=== PATIENT | male | born 1945 | race Caucasian/White ===

== ENCOUNTER → 2016-10-14 | Outpatient (CLI) | payer MEDICARE | LOC: COL.RAD 09:32 | DX: Z13.6 Encounter for screening for cardiovascular disorders (principal); Z87.891 Personal history of nicotine dependence ==

== ENCOUNTER → 2016-11-08 | Outpatient (CLI) | payer MEDICARE | LOC: COL.RAD 08:51 | DX: K86.89 Other specified diseases of pancreas (principal); N28.1 Cyst of kidney, acquired; K80.20 Calculus of gallbladder without cholecystitis without obstruction; K85.90 Acute pancreatitis without necrosis or infection, unspecified | CPT/HCPCS: Q9967 ==

== ENCOUNTER 2017-03-09 14:24 | Outpatient (RCR) | payer MEDICARE ==
[2005-04-11 18:44] VITALS: BP 131/59
[~2017-03-09] VITALS: Ht 185.4 cm; Wt 81.8 kg
[2017-03-09 14:52] VITALS: BP 138/69; PULSE 78; TEMP 97.3
[2017-03-23] MEDS ORDERED: COLACE 100100 MG/CAP PO (14:52)
[2017-03-23] MEDS ORDERED: FLOMAX 0.40.4 MG/CAP PO (14:52)
== END 2017-03-09 18:00 | disposition home or self-care (01) ==
LOC: EUO 14:24
DX: C25.0 Malignant neoplasm of head of pancreas (principal)

== ENCOUNTER 2017-03-15 18:10 | Emergency (ER) | payer MEDICARE ==
[2005-04-11 18:44] VITALS: BP 131/59
[~2017-03-15] VITALS: Ht 185.4 cm; Wt 81.8 kg
[2017-03-15 18:19] VITALS: TEMP 97.7
[2017-03-15 21:09] LABS: HEMATOCRIT 39.6 % (42.0-52.0); MEAN CELL VOLUME 96 fl (80.0-100.0); MEAN CORPUSCULAR HEMOGLOBIN 32 pg (27.0-31.0); MEAN CORPUSCULAR HGB CONC 33 g/dl (33.0-37.0); MEAN PLATELET VOLUME 9.2 fl (7.4-10.4); PLATELET COUNT 224 K/mm3 (130-400); RED BLOOD COUNT 4.13 M/mm3 (4.20-5.60)
[2017-03-15 21:13] LABS: ADD PATHOLOGY DIFF REVIEW NO
[2017-03-15 21:26] LABS: ADJUSTED CALCIUM 9.8 mg/dL (8.4-10.2); ALBUMIN 3.5 gm/dL (3.5-5.0); BILIRUBIN,TOTAL 0.6 mg/dL (0.0-1.0); C-REACTIVE PROTEIN 1.8 mg/dL (0.0-0.9); CALCIUM 9.4 mg/dL (8.4-10.2); CREATININE, serum 0.72 mg/dL (0.66-1.25); POTASSIUM 3.8 mmol/L (3.4-5.0); TOTAL PROTEIN 7.4 gm/dL (6.4-8.2)
[2017-03-15] MEDS ORDERED: [UNRECOGNIZED DRUG - OTHER] (21:29)
[2017-03-15] MEDS ORDERED: FLUOROURACIL50 MG/ML IV (21:30)
[2017-03-15] MEDS ORDERED: OXALIPLATIN IV (21:31)
[2017-03-15 21:32] LABS: BAND 2 % (0-10); EOSINOPHIL 2 % (0-4); LYMPHOCYTE 17 % (20.0-51.0); NEUTROPHILS 66 % (42.0-75.2); ROULEAUX 1+; TOTAL CELLS COUNTED 100
[2017-03-15 21:33] LABS: ANISOCYTOSIS 1+; POIKILOCYTOSIS 1+
[2017-03-16 00:50] VITALS: BP 121/77; PULSE 106
[2017-03-16 04:41] LABS: COLLECTION METHOD CLEAN CATCH
[2017-03-16 05:05] LABS: MUCOUS Present /lpf; PH 5 (5-8); SQUAMOUS EPITHELIAL None Seen /hpf; URINE APPEARANCE Turbid; URINE BACTERIA Rare /hpf; URINE BILIRUBIN Negative (NEGATIVE); URINE BLOOD Negative (NEGATIVE); URINE COLOR Amber; URINE GLUCOSE Negative (NEGATIVE); URINE KETONE Negative (NEGATIVE); URINE LEUKOCYTE ESTERASE Negative (NEGATIVE); URINE PROTEIN(semi-quant) Negative (NEGATIVE); URINE RBC 0-2 /hpf; URINE WBC 0-2 /hpf
[2017-03-23] MEDS ORDERED: FLOMAX 0.40.4 MG/CAP PO (14:52)
[2017-03-23] MEDS ORDERED: COLACE 100100 MG/CAP PO (14:52)
== END 2017-03-16 00:50 | disposition home or self-care (01) ==
LOC: COL.ER 18:10
PROVIDERS: Family Medicine
DX: K59.00 Constipation, unspecified (principal); R33.9 Retention of urine, unspecified; C25.9 Malignant neoplasm of pancreas, unspecified
CPT/HCPCS: J2405; J7030; J7050; Q9967

== ENCOUNTER 2017-04-20 14:30 | Outpatient (RCR) | payer MEDICARE ==
[2005-04-11 18:44] VITALS: BP 131/59
[2017-03-23 14:53] VITALS: BP 124/70; PULSE 91; TEMP 97.8
[2017-04-06 14:39] VITALS: BP 141/73; PULSE 86; TEMP 97.8
[~2017-04-20] VITALS: Ht 185.4 cm; Wt 77.0 kg
[2017-04-20 14:25] VITALS: BP 102/57; PULSE 64; TEMP 97.6
[~2017-04-20 14:30] MED LIST: COLACE 100100 MG/CAP PO; FLOMAX 0.40.4 MG/CAP PO; FLUOROURACIL50 MG/ML IV; OXALIPLATIN IV; [UNRECOGNIZED DRUG - OTHER]
== END 2017-06-21 ==
LOC: EUO
DX: C25.0 Malignant neoplasm of head of pancreas (principal)
CPT/HCPCS: J1644

== ENCOUNTER → 2017-05-22 | Outpatient (CLI) | payer MEDICARE | LOC: COL.PUL 14:51 | DX: R91.1 Solitary pulmonary nodule (principal) ==

== ENCOUNTER 2017-08-08 11:49 | Emergency (ER) | payer MEDICARE ==
[2005-04-11 18:44] VITALS: BP 131/59
[~2017-08-08] VITALS: Ht 185.4 cm; Wt 73.6 kg
[2017-08-08 12:20] LABS: MEAN CELL VOLUME 100 fl (80.0-100.0); MEAN CORPUSCULAR HGB CONC 31 g/dl (33.0-37.0); PLATELET COUNT 307 K/mm3 (130-400); RED BLOOD COUNT 2.83 M/mm3 (4.20-5.60); REDCELL DISTRIBUTION WIDTH-CV 13.7 % (11.5-14.5)
[2017-08-08 12:22] LABS: HEMATOCRIT 28.3 % (42.0-52.0); HEMOGLOBIN 8.9 g/dl (13.5-18.0); MEAN CORPUSCULAR HEMOGLOBIN 31 pg (27.0-31.0)
[2017-08-08 12:26] LABS: ALBUMIN 2.3 gm/dL (3.5-5.0); BILIRUBIN,TOTAL 0.3 mg/dL (0.0-1.0); CALCIUM 7.9 mg/dL (8.4-10.2); CREATININE, serum 0.78 mg/dL (0.66-1.25); POTASSIUM 4.5 mmol/L (3.4-5.0); TOTAL PROTEIN 5.4 gm/dL (6.4-8.2)
[2017-08-08 12:36] LABS: BAND 5 % (0-10); LYMPHOCYTE 17 % (20.0-51.0); METAMYELOCYTE 1 % (0-0); NEUTROPHILS 75 % (42.0-75.2); PLATELET ESTIMATE NORMAL (NORMAL)
[2017-08-08] MEDS ORDERED: FLOMAX 0.40.4 MG/CAP PO (12:43)
[2017-08-08] MEDS ORDERED: ROXICODONE 55 MG/TAB PO (12:43)
[2017-08-08] MEDS ORDERED: LOPRESSOR 225 MG/TAB PO (12:44)
[2017-08-08] MEDS ORDERED: [UNRECOGNIZED DRUG - OTHER] (12:44)
[2017-08-08 14:35] LABS: COLLECTION METHOD CLEAN CATCH
[2017-08-08 14:45] LABS: MUCOUS Present /lpf; PH 5 (5-8); SQUAMOUS EPITHELIAL 0-2 /hpf; URINE APPEARANCE Clear; URINE BACTERIA None Seen /hpf; URINE BILIRUBIN Negative (NEGATIVE); URINE BLOOD Negative (NEGATIVE); URINE COLOR Yellow; URINE GLUCOSE Negative (NEGATIVE); URINE KETONE Negative (NEGATIVE); URINE LEUKOCYTE ESTERASE Negative (NEGATIVE); URINE NITRATE Negative (NEGATIVE); URINE PROTEIN(semi-quant) Negative (NEGATIVE); URINE RBC 0-2 /hpf; URINE UROBILINOGEN Negative (NEGATIVE)
[2017-08-08 14:57] VITALS: BP 93/64; PULSE 83; TEMP 97.4
[2017-08-08 15:05] VITALS: BP 87/58; PULSE 80; TEMP 97.7
[2017-08-08 15:11] VITALS: BP 85/59; PULSE 81; TEMP 97.6
[2017-08-08 15:22] VITALS: BP 85/57; PULSE 90; TEMP 97.2
[2017-08-08 16:10] VITALS: BP 98/59; PULSE 83; TEMP 97.7
== END 2017-08-08 15:50 | disposition short-term general hospital (02) ==
LOC: COL.ER 11:49
PROVIDERS: Emergency Medicine
DX: I95.9 Hypotension, unspecified (principal); R93.3 Abnormal findings on diagnostic imaging of other parts of digestive tract; Z85.07 Personal history of malignant neoplasm of pancreas; Z90.49 Acquired absence of other specified parts of digestive tract
CPT/HCPCS: C9113; J7030; P9016; Q9967

== ENCOUNTER 2017-09-11 05:43 | Emergency (ER) | payer MEDICARE ==
[2005-04-11 18:44] VITALS: BP 131/59
[~2017-09-11] VITALS: Ht 185.4 cm; Wt 71.4 kg
[~2017-09-11 05:43] MED LIST changes: +LOPRESSOR 225 MG/TAB PO; +ROXICODONE 55 MG/TAB PO; +[UNRECOGNIZED DRUG - OTHER]
[2017-09-11] MEDS ORDERED: PLAVIX 75MG TAB75 MG PO (05:55)
[2017-09-11] MEDS ORDERED: ASPIRIN 32325 MG/TAB PO (05:55)
[2017-09-11 06:10] LABS: BASO # 0.1 (0.0-0.2); BASO % 0.4 % (0.0-2.0); EOS # 0.2 (0.0-0.7); EOS % 1.5 % (0-4.0); GRAN % 74.1 % (42.2-75.2); LYMPH # 2.4 (1.2-3.4); LYMPH % 14.8 % (20.0-51.0); MEAN CELL VOLUME 95 fl (80.0-100.0); MEAN CORPUSCULAR HGB CONC 32 g/dl (33.0-37.0); MONO # 1.4 (0.1-0.6); MONO % 8.5 % (1.7-9.3); PLATELET COUNT 398 K/mm3 (130-400); RED BLOOD COUNT 3.02 M/mm3 (4.20-5.60)
[2017-09-11 06:14] LABS: HEMATOCRIT 28.8 % (42.0-52.0); HEMOGLOBIN 9.2 g/dl (13.5-18.0); MEAN CORPUSCULAR HEMOGLOBIN 30 pg (27.0-31.0)
[2017-09-11 06:16] LABS: INR 1.2 (0.8-3.0); PROTHROMBIN TIME 13.9 SECONDS (9.7-12.8)
[2017-09-11 06:18] LABS: PARTIAL THROMBOPLASTIN TIME 27.8 SECONDS (26.0-37.0)
[2017-09-11 06:26] LABS: ALBUMIN 3.1 gm/dL (3.5-5.0); BILIRUBIN,TOTAL 0.5 mg/dL (0.0-1.0); CALCIUM 8.7 mg/dL (8.4-10.2); CREATININE, serum 0.6 mg/dL (0.66-1.25); POTASSIUM 3.9 mmol/L (3.4-5.0); TOTAL PROTEIN 7.5 gm/dL (6.4-8.2)
[2017-09-11 07:46] LABS: COLLECTION METHOD CLEAN CATCH
[2017-09-11 07:58] LABS: MUCOUS Present /lpf; PH 5 (5-8); SQUAMOUS EPITHELIAL 0-2 /hpf; URINE APPEARANCE Clear; URINE BACTERIA None Seen /hpf; URINE BILIRUBIN Negative (NEGATIVE); URINE BLOOD Negative (NEGATIVE); URINE COLOR Yellow; URINE GLUCOSE Negative (NEGATIVE); URINE KETONE Negative (NEGATIVE); URINE LEUKOCYTE ESTERASE Negative (NEGATIVE); URINE NITRATE Negative (NEGATIVE); URINE PROTEIN(semi-quant) Negative (NEGATIVE); URINE RBC 0-2 /hpf; URINE UROBILINOGEN Negative (NEGATIVE)
[2017-09-11 08:20] VITALS: BP 101/63; PULSE 92; TEMP 97.9
[2017-09-11 08:34] VITALS: BP 105/67; PULSE 94; TEMP 98.1
== END 2017-09-11 08:51 | disposition short-term general hospital (02) ==
LOC: COL.ER 05:43
PROVIDERS: Emergency Medicine
DX: K92.2 Gastrointestinal hemorrhage, unspecified (principal); I72.8 Aneurysm of other specified arteries; I48.91 Unspecified atrial fibrillation; N40.0 Benign prostatic hyperplasia without lower urinary tract symptoms; Z98.890 Other specified postprocedural states; Z85.07 Personal history of malignant neoplasm of pancreas; Z79.02 Long term (current) use of antithrombotics/antiplatelets; Z79.82 Long term (current) use of aspirin
CPT/HCPCS: C9113; J7030; P9016; Q9967

== ENCOUNTER 2018-11-29 12:49 | Inpatient (IN) | payer MEDICARE ==
[~2018-11-29] VITALS: Ht 182.9 cm; Wt 66.7 kg
[2018-11-29] VITALS (158 sets, daily range): BP systolic 92–97; BP diastolic 55–59; PULSE 69–70; TEMP 98.5–98.8; O2SAT 86–100
[~2018-11-29 12:49] MED LIST changes: +ASPIRIN 32325 MG/TAB PO; +PLAVIX 75MG TAB75 MG PO
[2018-11-29] MEDS ORDERED: COLESTID 1GM1 G PO (13:38)
[2018-11-29] MEDS ORDERED: XELODA500 MG (13:40)
[2018-11-29 14:15] LABS: BASO % 0.4 % (0.0-2.0); EOS # 0.1 (0.0-0.7); EOS % 1.4 % (0-4.0); GRAN # 5.7 (1.4-6.5); GRAN % 76.4 % (42.2-75.2); LYMPH # 0.9 (1.2-3.4); LYMPH % 11.5 % (20.0-51.0); MEAN CELL VOLUME 103 fl (80.0-100.0); MEAN CORPUSCULAR HGB CONC 34 g/dl (33.0-37.0); MEAN PLATELET VOLUME 9.6 fl (7.4-10.4); MONO # 0.7 (0.1-0.6); MONO % 9.6 % (1.7-9.3); PLATELET COUNT 230 K/mm3 (130-400); RED BLOOD COUNT 2.54 M/mm3 (4.20-5.60)
[2018-11-29 14:22] LABS: HEMATOCRIT 26.2 % (42.0-52.0); HEMOGLOBIN 8.9 g/dl (13.5-18.0); MEAN CORPUSCULAR HEMOGLOBIN 35 pg (27.0-31.0)
[2018-11-29 14:27] LABS: INR 1.6 (0.8-3.0); PROTHROMBIN TIME 19.3 SECONDS (9.7-12.8)
[2018-11-29 14:28] LABS: ALBUMIN 2.6 gm/dL (3.5-5.0); BILIRUBIN,TOTAL 0.7 mg/dL (0.0-1.0); CALCIUM 7.7 mg/dL (8.4-10.2); CREATININE, serum 0.52 (0.66-1.25); POTASSIUM 3.4 mmol/L (3.4-5.0); TOTAL PROTEIN 5.9 gm/dL (6.4-8.2)
[2018-11-29 16:11] LABS: C-REACTIVE PROTEIN 5.8 mg/dL (0.0-0.9)
[2018-11-29 16:25] LABS: LIPASE < 10 U/L (23-300)
--- NOTE | 2018-11-29 19:35 | NUR ---
Bedside report received from STEFANIA Souza
--- NOTE | 2018-11-29 20:00 | NUR ---
Patient is resting in bed watching TV. He is alert and oriented x4. Lungs are clear bilaterally with diminished bases. HR and rhythm are regular with occasional A-paced beats, normal S1 and S2 heard. Bowel sounds are hypoactive but audible in all quadrants. Patient has palpable pulses in all extremities. Assisted patient up to the restroom. He passes a large amount of gas, but no stool. Patient has no complaints of pain. Vitals are stable and WNL. No further needs at this time. Will continue to monitor. Call light within reach.
[2018-11-29 21:35] LABS: HEMATOCRIT 20.9 % (42.0-52.0); HEMOGLOBIN 7.1 g/dl (13.5-18.0)
[2018-11-30] VITALS (545 sets, daily range): BP systolic 85–112; BP diastolic 47–60; PULSE 60–66; TEMP 97.4–98.4; O2SAT 52–99
--- NOTE | 2018-11-30 | NUR ---
Assessment complete. Patient resting in bed, no complaints of pain. Assisted up to the restroom. He continues to pass gas with no stool, Patient does urinate a small amount. Assessment reveals no changes from previous exam. Vitals obtained and remain stable. No further needs at this time. Will continue to monitor. Call light within reach.
--- NOTE | 2018-11-30 04:00 | NUR ---
Patient awake at this time and assisted up to the bathroom. He produces a small stool. It is soft formed and tarry. Patient urinates. Assisted back to bed. Assessment complete. No changes from previous exam except that bowel sounds are more active in all quadrants. No complaints of pain. Vitals obtained and remain stable. No further needs. Will continue to monitor. Call light within reach.
[2018-11-30 06:00] LABS: BASO % 0.2 % (0.0-2.0); EOS # 0.2 (0.0-0.7); EOS % 2.4 % (0-4.0); GRAN # 7.2 (1.4-6.5); GRAN % 80.7 % (42.2-75.2); LYMPH # 0.9 (1.2-3.4); LYMPH % 9.7 % (20.0-51.0); MEAN CELL VOLUME 104 fl (80.0-100.0); MEAN CORPUSCULAR HGB CONC 34 g/dl (33.0-37.0); MEAN PLATELET VOLUME 9.7 fl (7.4-10.4); MONO # 0.6 (0.1-0.6); MONO % 6.4 % (1.7-9.3); PLATELET COUNT 203 K/mm3 (130-400); RED BLOOD COUNT 2.01 M/mm3 (4.20-5.60)
[2018-11-30 06:01] LABS: HEMATOCRIT 20.9 % (42.0-52.0); MEAN CORPUSCULAR HEMOGLOBIN 35 pg (27.0-31.0)
[2018-11-30 06:11] LABS: ALBUMIN 2.1 gm/dL (3.5-5.0); BILIRUBIN,TOTAL 0.6 mg/dL (0.0-1.0); CALCIUM 7.5 mg/dL (8.4-10.2); CREATININE, serum 0.51 (0.66-1.25); POTASSIUM 3.3 mmol/L (3.4-5.0); TOTAL PROTEIN 5.1 gm/dL (6.4-8.2)
[2018-11-30 06:12] LABS: INR 1.6 (0.8-3.0); PROTHROMBIN TIME 19.4 SECONDS (9.7-12.8)
--- NOTE | 2018-11-30 07:31 | NUR ---
Bedside report given to STEFANIA Ramos
--- NOTE | 2018-11-30 09:31 | NUR ---
Initial visit; Patient thanked Plastic Worker for looking in on him and offering God's blessings. Family requested Plastic Worker contact their Patrol Sergeant. Plastic Worker did so.
--- NOTE | 2018-11-30 10:28 | NUR ---
PT SITTING UP IN BED THIS AM AND WANTING TO ATTEMPT TO EAT SOME CHICKEN BROTH. A&O X4.
--- NOTE | 2018-11-30 11:06 | NUR ---
SW attended clinical rounds to discuss discharge planning. Patient's and son were also present. Patient is currently getting cancer treatment and follows with doctors at [facility]. Patient's lives independently at home with his . Patient's PCP is Dr Padilla but he will be retiring and patient will start seeing Dr Erik Klein. Patient's does not use any DME or home health services. Patient's reports patient has used home health in the past. Patient is not interested in any home health services at this time. Patient does not have any advanced directives but is interested in completing a DPOA-HC. SW provided DPOA-HC. Patient's reports she will inform SW when patient is ready to sign. No additional needs at this time. SW will continue to follow.
[2018-11-30 16:30] LABS: HEMATOCRIT 23.5 % (42.0-52.0); HEMOGLOBIN 7.9 g/dl (13.5-18.0)
--- NOTE | 2018-11-30 19:40 | NUR ---
Bedside report received from STEFANIA Ramos. Patient had a very large bloody/tarry loose stool. Dr Olivo was notified by Rachel and orders were given for patient to not be transferred from the unit and to stay as IMCU status. Patient was placed on clear liquid diet, and orders given for H+H to be drawn Q8HR.
--- NOTE | 2018-11-30 20:00 | NUR ---
Patient awake and laying in bed watching TV. Family at bedside. Patient is alert and oriented x4. Patient is upset and tearful that he will be staying in the ICU. He has no complaints of pain. Assessment complete. HR and rhythm are regular with normal S1 and S2 heard. Lungs are clear bilaterally with diminished bases. Bowel sounds are active. Patient is passing gas. Patient's pulses are palpable in all extremities. Patient is still wobbly on his feet and requires someone to hold on to for steadying. Patient requests some chicken broth, provided. No further needs at this time. Will continue to monitor. Call light within reach.
--- NOTE | 2018-11-30 22:00 | NUR ---
Dr. Gaffney called and notified of patients change in status and Dr. Olivo's orders. See physician notification for details. Orders received for unit of blood to be transfused and H+H one hour after.
--- NOTE | 2018-11-30 23:15 | NUR ---
Blood transfusion to be started at this time. Unit of blood, paperwork, and patient information confirmed and cross-checked with STEFANIA Oliveira. Starting vitals as follows: 99/55, HR-68, RR-22, O2 SAT-95%, T-98.4 orally. Starting transfusion rate at 60ml/hr. Will remain at bedside for first 15mins of transfusion.
--- NOTE | 2018-11-30 23:30 | NUR ---
Transfusion vitals - 90/52, HR-65, RR-22, O2 SAT-96%, T-98.5. Infusion rate increased to 120ml/hr.
[2018-12-01] VITALS: BP 95/53; PULSE 64; TEMP 98.6
--- NOTE | 2018-12-01 | NUR ---
Transfusion vitals - 95/53, HR-64, RR-20, O2 SAT-93%, T-98.6. Infusion rate increased to 200ml/hr.
--- NOTE | 2018-12-01 01:00 | NUR ---
Transfusion vitals - 110/58, HR-60, RR-20, O2 SAT-94%, T-98.6
--- NOTE | 2018-12-01 01:19 | NUR ---
Blood transfusion ends at this time.
[2018-12-01 03:44] LABS: HEMATOCRIT 27.4 % (42.0-52.0); HEMOGLOBIN 9.3 g/dl (13.5-18.0)
[2018-12-01 04:00] VITALS: BP 105/57; PULSE 62; TEMP 97.8
--- NOTE | 2018-12-01 04:00 | NUR ---
Patient asleep, but awakens to name. Vitals obtained and remain stable. No complaints of pain. Patient has no further needs at this time. Will continue to monitor. Call light within reach.
--- NOTE | 2018-12-01 05:20 | NUR ---
Patient up to the restroom at this time. Once back in bed he requests to take his twister tender paper medication early so that he can sleep until shift change. Medication to be provided.
[2018-12-01 05:25] LABS: BASO % 0.3 % (0.0-2.0); EOS # 0.3 (0.0-0.7); EOS % 4.2 % (0-4.0); GRAN # 5.7 (1.4-6.5); LYMPH # 0.8 (1.2-3.4); LYMPH % 10.2 % (20.0-51.0); MEAN CELL VOLUME 100 fl (80.0-100.0); MEAN CORPUSCULAR HGB CONC 34 g/dl (33.0-37.0); MEAN PLATELET VOLUME 9.5 fl (7.4-10.4); MONO # 0.6 (0.1-0.6); MONO % 7.9 % (1.7-9.3); PLATELET COUNT 210 K/mm3 (130-400); RED BLOOD COUNT 2.65 M/mm3 (4.20-5.60); REDCELL DISTRIBUTION WIDTH-CV 18.1 % (11.5-14.5)
[2018-12-01 05:26] LABS: HEMATOCRIT 26.5 % (42.0-52.0); MEAN CORPUSCULAR HEMOGLOBIN 34 pg (27.0-31.0)
[2018-12-01 05:33] LABS: CALCIUM 7.5 mg/dL (8.4-10.2); CREATININE, serum 0.5 (0.66-1.25); MAGNESIUM 1.9 mg/dL (1.6-2.3); POTASSIUM 3.4 mmol/L (3.4-5.0)
--- NOTE | 2018-12-01 07:20 | NUR ---
Bedside report given to STEFANIA Zazueta and Brandon RN
[2018-12-01 08:30] VITALS: BP 104/59; PULSE 75; TEMP 97.9
[2018-12-01 10:58] LABS: HEMATOCRIT 28.8 % (42.0-52.0); HEMOGLOBIN 9.8 g/dl (13.5-18.0)
--- NOTE | 2018-12-01 11:24 | NUR ---
Patient had a number of family members present and their clinical liaison was there also so I only introduced myself and told them if they needed anything to have the nurse contact me.
[2018-12-01 16:00] VITALS: BP 116/54; PULSE 66; TEMP 97.6
--- NOTE | 2018-12-01 19:10 | NUR ---
STEFANIA Zazueta called Dr. Gaffney to update on patient; received ok to advance diet to general if next hgb is within normal limits. Awaiting HGB results.
[2018-12-01 19:32] LABS: HEMATOCRIT 27.3 % (42.0-52.0); HEMOGLOBIN 9.3 g/dl (13.5-18.0)
[2018-12-01 19:40] VITALS: BP 119/56; PULSE 69; TEMP 98.2
--- NOTE | 2018-12-01 19:56 | NUR ---
Assessment complete; denies any pain or other issues at this time. Reports that eyes feel "better" since starting eye ointment treatments. Family at bedside. Awaiting HGB results and will update family and patient when they are resulted.
--- NOTE | 2018-12-01 21:20 | NUR ---
Report called to STEFANIA Parker. Patient and family currently watching football game; stable at this time with no complaints.
--- NOTE | 2018-12-01 21:34 | NUR ---
Assisted up to medical floor via wheelchair. Telemetry box attached. Stable upon transfer and family members sent upstairs with patient. Assisted into medical bed and informed accepting nurse of his arrival.
--- NOTE | 2018-12-01 21:35 | NUR ---
Pt arrived to room 352, transferred per wheelchair by ICU staff. Pt awake, a&o, cooperative c cares. Assessment findings consistant c last assessment. Pt oriented to room, unit policies et current POC. Questions invited et answered, pt verbalizes understanding. Pt c/o some increased abd pain since, will provide PRN pain meds per pt req. Pt denies any other c/o. Portacath noted, patent c good blood return. Tele in place. Pt denies further needs. Call light in reach, bed alarm on. Will continue to monitor.
[2018-12-01 23:18] VITALS: BP 99/56; PULSE 64; TEMP 97.6
[2018-12-02 03:25] LABS: HEMATOCRIT 27.3 % (42.0-52.0); HEMOGLOBIN 9.3 g/dl (13.5-18.0)
[2018-12-02 03:41] VITALS: BP 115/53; PULSE 68; TEMP 98.2
--- NOTE | 2018-12-02 07:30 | NUR ---
Pt is awake and A/Ox4, sitting up in bed. He reports his generalized pain is doing "fine" rating it a 3/10. IVF infusing into port without difficulty. Pt denies any other difficulty.
[2018-12-02 07:38] VITALS: BP 111/53; PULSE 65; TEMP 98
[2018-12-02 11:40] LABS: HEMATOCRIT 27.3 % (42.0-52.0); HEMOGLOBIN 9.1 g/dl (13.5-18.0)
[2018-12-02 11:47] VITALS: BP 115/52; PULSE 64; TEMP 98.2
[2018-12-02 11:56] VITALS: BP 115/52; PULSE 58; TEMP 98.2
--- NOTE | 2018-12-02 14:03 | NUR ---
Pt ambulated in hallways with staff, steady gait noted. Ambulated approx. 250 feet without difficulty.
[2018-12-02] MEDS ORDERED: CARAFATE 1GM1 G PO (14:12)
[2018-12-02] MEDS ORDERED: PROTONIX 40MG T40 MG PO (14:15)
[2018-12-02] MEDS ORDERED: ILOTYCIN5 MG/GM OP (14:46)
--- NOTE | 2018-12-02 15:32 | NUR ---
Pt was discharged home from hospital. All discharge paperwork was reviewed with pt and his , both expressed understanding and questions answered. Port to right upper chest was removed, needle intact. New prescriptions sent to pharm. Pt was escorted out of facility by staff.
== END 2018-12-02 15:53 | disposition home or self-care (01) | DRG 378 ==
LOC: COL.ER 12:49 → ICU 17:17 → MEDICAL 12-01 21:34
PROVIDERS: Emergency Medicine; Family Medicine; Internal Medicine; Internal Medicine Gastroenterology; Nurse Practitioner Family; Physician Assistant; ADMIT Student in an Organized Health Care Education/Training Program
PROC: 0W3P8ZZ Control Bleeding in Gastrointestinal Tract, Via Natural or Artificial Opening Endoscopic (ICD-10-PCS; principal; 2018-11-29 17:45)
DX: K28.4 Chronic or unspecified gastrojejunal ulcer with hemorrhage (principal); C25.9 Malignant neoplasm of pancreas, unspecified; D62 Acute posthemorrhagic anemia; I48.91 Unspecified atrial fibrillation; I72.8 Aneurysm of other specified arteries; E87.6 Hypokalemia; I10 Essential (primary) hypertension; R91.1 Solitary pulmonary nodule; H10.9 Unspecified conjunctivitis; J44.9 Chronic obstructive pulmonary disease, unspecified; K59.00 Constipation, unspecified; I95.9 Hypotension, unspecified; Z79.891 Long term (current) use of opiate analgesic; Z95.0 Presence of cardiac pacemaker; Z87.11 Personal history of peptic ulcer disease; Z87.891 Personal history of nicotine dependence
CPT/HCPCS: 99223-AI; 99232-AI; 99239; C9113; J2370; J2405; J2704; J7030; P9016; Q9967

== ENCOUNTER 2018-12-02 23:46 | Inpatient (IN) | payer MEDICARE ==
[~2018-12-02] VITALS: Ht 182.9 cm; Wt 72.0 kg
[~2018-12-02 23:46] MED LIST changes: +CARAFATE 1GM1 G PO; +COLESTID 1GM1 G PO; +ILOTYCIN5 MG/GM OP; +PROTONIX 40MG T40 MG PO; +XELODA500 MG
[2018-12-03 00:30] LABS: BASO % 0.3 % (0.0-2.0); EOS # 0.2 (0.0-0.7); EOS % 2.5 % (0-4.0); GRAN # 7.7 (1.4-6.5); GRAN % 80.2 % (42.2-75.2); LYMPH # 0.9 (1.2-3.4); LYMPH % 9.1 % (20.0-51.0); MEAN CELL VOLUME 100 fl (80.0-100.0); MEAN CORPUSCULAR HGB CONC 34 g/dl (33.0-37.0); MEAN PLATELET VOLUME 9.4 fl (7.4-10.4); MONO # 0.7 (0.1-0.6); MONO % 7.3 % (1.7-9.3); PLATELET COUNT 248 K/mm3 (130-400); REDCELL DISTRIBUTION WIDTH-CV 17.8 % (11.5-14.5)
[2018-12-03 00:31] LABS: HEMATOCRIT 27.9 % (42.0-52.0); HEMOGLOBIN 9.6 g/dl (13.5-18.0); MEAN CORPUSCULAR HEMOGLOBIN 34 pg (27.0-31.0)
[2018-12-03 00:35] LABS: INR 1.5 (0.8-3.0); PROTHROMBIN TIME 17.4 SECONDS (9.7-12.8)
[2018-12-03 00:38] LABS: ALBUMIN 2.3 gm/dL (3.5-5.0); BILIRUBIN,TOTAL 0.9 mg/dL (0.0-1.0); CALCIUM 7.4 mg/dL (8.4-10.2); CREATININE, serum 0.54 (0.66-1.25); PARTIAL THROMBOPLASTIN TIME 33.5 SECONDS (26.0-37.0); TOTAL PROTEIN 5.6 gm/dL (6.4-8.2)
[2018-12-03 00:40] LABS: POTASSIUM 2.9 mmol/L (3.4-5.0)
[2018-12-03 02:36] LABS: ARTERIAL BLD GAS O2 SATURATION 94.3 % (92-100); ARTERIAL BLD GAS TCO2 CT 19.3; ARTERIAL BLOOD GAS BASE EXCESS -3.5 (-2-2); ARTERIAL BLOOD GAS HCO3 18.5 meq/L (22-26); ARTERIAL BLOOD GAS PCO2 25.3 mmHg (35-45); ARTERIAL BLOOD GAS PO2 72.3 mmHg (80-100); ARTERIAL BLOOD GAS pH 7.48 (7.35-7.45)
--- NOTE | 2018-12-03 03:15 | NUR ---
Pt arrived from ER via stretcher. K+ replacement and Vancomycin infusing to R chest port. Pt ambulated from stretcher to bed. Pt unsteady on feet. Pt dyspneic with exertion. Respirations become unlabored after resting. Spo2 90% at 6L via NC once in bed. Lung bases diminished. Abdomen soft, nontender. BS+. at bedside for admission assessment. Home meds reviewed. Pt denies needs at this time.
--- NOTE | 2018-12-03 03:30 | NUR ---
Spo2 has stabilized to 97% on O2@6L. Will continue to monitor.
[2018-12-03 04:09] VITALS: BP 109/49; PULSE 70; TEMP 98.1
--- NOTE | 2018-12-03 04:15 | NUR ---
Pt up to BSC with 1 assist. Dyspneic when up. O2 sats drop into low 90s when up. Voiding clear yellow urine. Small soft formed, brewer BM.
--- NOTE | 2018-12-03 05:41 | NUR ---
Pt resting this AM. Respirations are even and unlabored at rest. Spo2 97% on O2 @6L via NC. IV K replacement infusing. Pt educated on sputum culture collection. No questions. Pt denies needs.
[2018-12-03 05:45] LABS: MEAN CELL VOLUME 101 fl (80.0-100.0); MEAN CORPUSCULAR HGB CONC 34 g/dl (33.0-37.0); MEAN PLATELET VOLUME 9.6 fl (7.4-10.4); PLATELET COUNT 230 K/mm3 (130-400); RED BLOOD COUNT 2.65 M/mm3 (4.20-5.60)
[2018-12-03 05:49] LABS: HEMATOCRIT 26.7 % (42.0-52.0); MEAN CORPUSCULAR HEMOGLOBIN 34 pg (27.0-31.0)
[2018-12-03 05:54] LABS: CALCIUM 7.4 mg/dL (8.4-10.2); CREATININE, serum 0.5 (0.66-1.25); MAGNESIUM 1.8 mg/dL (1.6-2.3); POTASSIUM 3.7 mmol/L (3.4-5.0)
[2018-12-03 06:31] LABS: ANISOCYTOSIS 1+; LYMPHOCYTE 10 % (20.0-51.0); NEUTROPHILS 84 % (42.0-75.2); PLATELET ESTIMATE NORMAL (NORMAL)
--- NOTE | 2018-12-03 06:44 | NUR ---
Vancomycin Initial Dosing Pharmacy Note Ordering provider: Jovi Hines MD Indication/duration: Pneumonia, 7 days Relevant comorbidities: LABS: crea= 0.5, est CrCl of 70 mL/min Recommendation: Received 1.5 gram loading dose in ED, will continue 1 gram IV every 8 hours, following daily serum creatinine levels, and checking a trough on 12/04 @ 1730. Loading dose: 1.5 grams Maintenance dose: 1 gram every 8 hours Trough goal: 15-20 ug/mL
--- NOTE | 2018-12-03 07:27 | NUR ---
Paitient is resting in bed laying on left side, respirations are even and non labored, call light is within reach.
[2018-12-03 08:43] VITALS: BP 108/51; PULSE 74; TEMP 98.7
--- NOTE | 2018-12-03 09:23 | NUR ---
Dr. Whitt in to see patient, ordered for radiology to do right thoracentesis. Consent obtained. PRN pain medication provided per request prior to procedure.
--- NOTE | 2018-12-03 13:07 | NUR ---
VEDA met with the patient and the patient's , Maryan (ph#[phone]), to discuss discharge plan and to complete the Re-admission Interview. The patient recently discharged from the hospital, 12/02, and returned back home with his and no services. The patient's reports that they left the hospital around 1500 and went home and then the patient became short of breath around 2100. The patient has pancreatic cancer. The patient's reports that they picked up the patient medications and took them as prescribed. The patient lives in [place] with his , Maryan. He reports independence with ADLs and has a walker. The patient's PCP is Dr. Chucky Padilla and he receives his medications at the [facility]. He reports no difficulties obtaining his meds. The patient does not have advanced directives in EMR, but he states that he has almost got them finished and just needs to get them notarized. VEDA informed the patient's that they could bring it to the hospital and we could contact our notary. The patient states he is designating his as DPOA-HC. At this time, the patient plans to return back home with his upon discharge. PT/OT have been ordered. SW to continue to follow.
[2018-12-03 13:43] VITALS: BP 116/54; PULSE 70; TEMP 97.4
[2018-12-03 13:53] LABS: GLUCOSE,PLEURAL FLUID 100 mg/dL; TOTAL PROTEIN,PLEURAL FLUID < 2.0 gm/dL
[2018-12-03 16:27] VITALS: BP 105/50; PULSE 74; TEMP 97.7
--- NOTE | 2018-12-03 18:26 | NUR ---
Patient is resting in bed, IV antibiotic administered. Denies pain. Offered assistance with ordering food, declined to eat, states he is still full from lunch. I did make mention of a milk shake and he did say that he would take a strawberry shake. Did order for patient. No other needs identified. Call light and personal items are within reach.
--- NOTE | 2018-12-03 19:10 | NUR ---
Shift assessment complete. Pt resting in bed, awake, a&o, cooperative c cares. Pt reports continued chronic pain to "feet, hands, ribs, just all over"; provided c PRN pain med per pt request. Pt denies any other specific c/o. Portacath noted to R chest, patent c good blood return. Tele in place. Pt denies further needs att his time. Call light in reach, will continue to monitor.
[2018-12-03 20:11] VITALS: BP 85/46; PULSE 77; TEMP 97.5
[2018-12-03 23:28] VITALS: BP 104/50; PULSE 63; TEMP 98.6
[2018-12-04 03:49] VITALS: BP 101/46; PULSE 67; TEMP 98.8
[2018-12-04 06:11] LABS: BASO % 0.2 % (0.0-2.0); EOS # 0.5 (0.0-0.7); EOS % 4.5 % (0-4.0); GRAN # 7.8 (1.4-6.5); LYMPH # 0.8 (1.2-3.4); LYMPH % 8.3 % (20.0-51.0); MEAN CELL VOLUME 100 fl (80.0-100.0); MEAN CORPUSCULAR HGB CONC 34 g/dl (33.0-37.0); MEAN PLATELET VOLUME 9.8 fl (7.4-10.4); MONO # 0.8 (0.1-0.6); MONO % 8.3 % (1.7-9.3); PLATELET COUNT 217 K/mm3 (130-400); RED BLOOD COUNT 2.63 M/mm3 (4.20-5.60); REDCELL DISTRIBUTION WIDTH-CV 17.8 % (11.5-14.5)
[2018-12-04 06:13] LABS: HEMATOCRIT 26.4 % (42.0-52.0); HEMOGLOBIN 8.9 g/dl (13.5-18.0); MEAN CORPUSCULAR HEMOGLOBIN 34 pg (27.0-31.0)
[2018-12-04 06:21] LABS: ALBUMIN 2.1 gm/dL (3.5-5.0); BILIRUBIN,TOTAL 0.8 mg/dL (0.0-1.0); CALCIUM 7.4 mg/dL (8.4-10.2); CREATININE, serum 0.51 (0.66-1.25); POTASSIUM 3.7 mmol/L (3.4-5.0); TOTAL PROTEIN 5.1 gm/dL (6.4-8.2)
[2018-12-04 08:00] VITALS: BP 107/56; PULSE 75; TEMP 97.6
[2018-12-04 10:47] VITALS: BP 110/47; PULSE 66; TEMP 97.9
--- NOTE | 2018-12-04 10:59 | NUR ---
Patient is resting in bed, states he is tired and states he is disgusted that he is feeling weak. is at bedside. Dr. Whitt was in to see patient. Requested oncology records from yesterday and awaiting their arrival. Declined to eat breakfast. Offered to order a milkshake and he agreed, also requesting a banana. No other needs verbalized. Call light and personal items are within reach.
[2018-12-04 15:43] VITALS: BP 92/51; PULSE 73; TEMP 99.1
--- NOTE | 2018-12-04 17:21 | NUR ---
Patient arrived to room via wheelchair accompanied by , son, sister and brother in law. Assisted to bed with max assist of 2. Patient is incontinent and wears pullup briefs. Lungs are clear to all lobes. Heart is regular rate and rhythm. Bowel sounds are active to all quadrants. No edema noted. Pedal and radial pulses are palpable bilaterally. Left patient services representative is slightly weaker than the right as is left extremity strength. She is noted to have some left facial drooping. It was reported patient did some coughing at breakfast this morning while eating eggs. Speech therapy evaluated patient and stated that she had no food or drink restrictions. Call light and personal light is within reach.
--- NOTE | 2018-12-04 18:53 | NUR ---
Patient assisted to restroom and back to bed. is at bedside. Call light is within reach.
[2018-12-04 19:28] VITALS: BP 87/47; PULSE 76; TEMP 97.4
[2018-12-04 23:26] VITALS: BP 96/48; PULSE 74; TEMP 97.9
--- NOTE | 2018-12-04 23:46 | NUR ---
Pt request and given Oxycodone 10mg for pain across his abdomen rated 5/10. Will continue to monitor. Call light in reach.
[2018-12-05 04:03] VITALS: BP 87/46; PULSE 58; TEMP 98.1
--- NOTE | 2018-12-05 05:39 | NUR ---
Pt has had a quiet, uneventful shift. O2 has been at 5L/NC all night. Received his antibiotics thru his port in upper right chest. States he is in pain all the time. He requested Oxycodone 2 tabs during the night. Reports that helped him rest. Rates his pain 3-4/10 and he is ok with that. Call light within reach.
[2018-12-05 06:11] LABS: BASO % 0.2 % (0.0-2.0); EOS # 0.4 (0.0-0.7); EOS % 3.5 % (0-4.0); GRAN % 78.6 % (42.2-75.2); LYMPH % 9.5 % (20.0-51.0); MEAN CELL VOLUME 102 fl (80.0-100.0); MEAN CORPUSCULAR HGB CONC 33 g/dl (33.0-37.0); MEAN PLATELET VOLUME 10.1 fl (7.4-10.4); MONO # 0.8 (0.1-0.6); MONO % 7.5 % (1.7-9.3); PLATELET COUNT 198 K/mm3 (130-400); RED BLOOD COUNT 2.43 M/mm3 (4.20-5.60); REDCELL DISTRIBUTION WIDTH-CV 17.7 % (11.5-14.5)
[2018-12-05 06:21] LABS: CALCIUM 7.3 mg/dL (8.4-10.2); CREATININE, serum 0.5 (0.66-1.25); POTASSIUM 3.7 mmol/L (3.4-5.0)
[2018-12-05 06:30] LABS: HEMATOCRIT 24.8 % (42.0-52.0); HEMOGLOBIN 8.2 g/dl (13.5-18.0); MEAN CORPUSCULAR HEMOGLOBIN 34 pg (27.0-31.0)
[2018-12-05 08:06] VITALS: BP 101/49; PULSE 67; TEMP 98
--- NOTE | 2018-12-05 08:40 | NUR ---
Alert, remains in bed. Becomes very SOB with minimal activity. Potassium 3.7 this morning, on potassium protocol. Replacing PO. Eye ointment refused at first, then patient agreed to take it. States his eyes are fine. Denies pain or discomfort. Oxygen on at 4.5 liters/min at rest.
--- NOTE | 2018-12-05 10:27 | NUR ---
Follow-up visit; Bairon's said he walked a short distance today and hopefully is making progress. She thanked Gas Station Cashier for staying in touch with her Liner Helper and keeping them in our prayers.
[2018-12-05 11:35] VITALS: BP 112/41; PULSE 58; TEMP 98.6
--- NOTE | 2018-12-05 13:13 | NUR ---
Received call from telemetry reporting a rhythm change on patients monitor with frequent PACs and PVCs. Notified providers and they will watch rhythm strips. VS are noted to be stable at this time.
[2018-12-05 15:52] LABS: ARTERIAL BLD GAS O2 SATURATION 93.1 % (92-100); ARTERIAL BLD GAS TCO2 CT 22.1; ARTERIAL BLOOD GAS BASE EXCESS -1.4 (-2-2); ARTERIAL BLOOD GAS HCO3 21.3 meq/L (22-26); ARTERIAL BLOOD GAS PCO2 28.8 mmHg (35-45); ARTERIAL BLOOD GAS PO2 61.5 mmHg (80-100); ARTERIAL BLOOD GAS pH 7.49 (7.35-7.45)
[2018-12-05 16:14] VITALS: BP 93/49; PULSE 78; TEMP 98.3
--- NOTE | 2018-12-05 17:00 | NUR ---
Patient reporting he was having pain in his back on the right side. Stating it was pretty severe, call placed to provider, received 1x order for IV morphine. Administered at 1530 and at 1550 patient was reporting great relief. O2 saturations increased, work of breathing has decreased and he overall feels better. states she has noticed an improvement in him as well. Did notify provider of improvement with the medication and received order for PRN morphine.
--- NOTE | 2018-12-05 18:58 | NUR ---
Spoke with Dr. Whitt regarding new medications, consultation and labs at 1500. Instructed to administer newly ordered solumedrol as soon as possible. Spoke with infectious disease regarding patients condition. Patient had ABG drawn amongst other ordered labs. Awaiting urine specimen for hystoplasma lab.
[2018-12-05 19:54] VITALS: BP 102/44; PULSE 81; TEMP 98
[2018-12-05 23:28] VITALS: BP 95/46; PULSE 69; TEMP 97.5
[2018-12-06 03:43] VITALS: BP 95/46; PULSE 67; TEMP 97.6
--- NOTE | 2018-12-06 04:46 | NUR ---
Pt was a little anxious thru the night on making the decision to go to for further treatment. Requested Morphine thru the night. O2 on at 5L/NC. Reports amublating to BR unassisted. plans to call for report early this AM. Plans are for pt to be transfered by ambulance to around 7AM.
--- NOTE | 2018-12-06 05:20 | NUR ---
Report given to Kalyn at [facility] for the continued care. Pt being transfered early this AM. called per pt request to let know plans to leave around 6:30 - 7:00
[2018-12-06 06:04] LABS: MEAN CELL VOLUME 102 fl (80.0-100.0); MEAN CORPUSCULAR HGB CONC 33 g/dl (33.0-37.0); MEAN PLATELET VOLUME 10.2 fl (7.4-10.4); PLATELET COUNT 198 K/mm3 (130-400); RED BLOOD COUNT 2.48 M/mm3 (4.20-5.60); REDCELL DISTRIBUTION WIDTH-CV 17.6 % (11.5-14.5)
[2018-12-06 06:12] LABS: HEMATOCRIT 25.4 % (42.0-52.0); HEMOGLOBIN 8.4 g/dl (13.5-18.0); MEAN CORPUSCULAR HEMOGLOBIN 34 pg (27.0-31.0)
[2018-12-06 06:18] LABS: CALCIUM 7.8 mg/dL (8.4-10.2); CREATININE, serum 0.52 (0.66-1.25); POTASSIUM 4.2 mmol/L (3.4-5.0)
[2018-12-06 06:58] LABS: ANISOCYTOSIS 1+; LYMPHOCYTE 5 % (20.0-51.0); NEUTROPHILS 95 % (42.0-75.2)
--- NOTE | 2018-12-06 07:35 | NUR ---
EMS here to transport pt to [facility]. Phone call made to [facility] to let them know that pt would be leaving our facility soon. Personal items sent with patient.
[2018-12-10 15:05] LABS: COCCIDIOIDES AB IGG Negative (Negative); COCCIDIOIDES AB IGM Negative (Negative); COCCIDIOIDES CF Negative (Negative)
== END 2018-12-06 07:35 | disposition short-term general hospital (02) | DRG 189 ==
LOC: COL.ER 23:46 → MEDICAL 12-03 02:30
PROVIDERS: Emergency Medicine; Hospitalist; Internal Medicine Pulmonary Disease; Nurse Practitioner Family; Physician Assistant; ADMIT Student in an Organized Health Care Education/Training Program
PROC: 0W993ZZ Drainage of Right Pleural Cavity, Percutaneous Approach (ICD-10-PCS; principal; 2018-12-03)
DX: J96.01 Acute respiratory failure with hypoxia (principal); E43 Unspecified severe protein-calorie malnutrition; J18.9 Pneumonia, unspecified organism; C34.90 Malignant neoplasm of unspecified part of unspecified bronchus or lung; J90 Pleural effusion, not elsewhere classified; I48.91 Unspecified atrial fibrillation; K59.09 Other constipation; E87.6 Hypokalemia; I95.9 Hypotension, unspecified; I34.0 Nonrheumatic mitral (valve) insufficiency; Z95.0 Presence of cardiac pacemaker; Z85.07 Personal history of malignant neoplasm of pancreas; Z90.411 Acquired partial absence of pancreas; Z79.891 Long term (current) use of opiate analgesic; Z87.891 Personal history of nicotine dependence; Z87.01 Personal history of pneumonia (recurrent); Z87.11 Personal history of peptic ulcer disease
CPT/HCPCS: 99223-AI; 99232-AI; 99239; A4216; J0692; J2270; J2920; J3370; J3480; J7030; J7050; J7512; Q9967

== ENCOUNTER → 2019-01-10 | Outpatient (CLI) | payer MEDICARE | LOC: COL.VAS 10:45 | DX: M79.89 Other specified soft tissue disorders (principal) ==